=== PATIENT | female | born 1980 | race Caucasian/White ===

== ENCOUNTER 2018-08-03 18:06 | Emergency (ER) | payer OTHER ==
[~2018-08-03] VITALS: Ht 170.2 cm; Wt 108.9 kg
--- NOTE | 2018-08-03 18:15 | NUR ---
PT PINO, FROM [facility], C/O SOB X 2 DAYS, AAOX4, RESPIRATIONS EVEN AND UNLABORED, NO SOB, NAD NOTED, PT ON MONITOR, SATING AT 96, VSS, PENDING ER PROVIDER MARLENA
[2018-08-03] MEDS ORDERED: predniSONE 20 MG TABLET ONE (18:24)
--- NOTE | 2018-08-03 18:27 | NUR ---
CALLED RT FOR BREATHING TX
[2018-08-03] MEDS ORDERED: predniSONE 20 MG TABLET PO ONE (18:30)
[2018-08-03] MEDS ORDERED: IPRATROPIUM NEB FS 0.5 MG/2.5 ML AMPUL.NEB NEB ONE (18:30)
[2018-08-03] MEDS ORDERED: ALBUTEROL FS 2.5 MG/3 ML VIAL.NEB NEB ONE (18:30)
[2018-08-03] MEDS ORDERED: ALBUTEROL FS 2.5 MG/3 ML VIAL.NEB ONE (18:41)
[2018-08-03] MEDS ORDERED: IPRATROPIUM NEB FS 0.5 MG/2.5 ML AMPUL.NEB ONE (18:41)
--- NOTE | 2018-08-03 19:32 | NUR ---
CALLED FOR TRANSPORT; PT IS READY TO BE [facility]
--- NOTE | 2018-08-03 20:01 | NUR ---
SET UP BLS RIG WITH JASBIR - ETA 60 - 75 MIN - TRIP#[id number]
--- NOTE | 2018-08-03 21:33 | NUR ---
PT TRANSPORTED BACK TO [facility] VIA PRIVATE AMBULANCE IN [facility] WITH 2 SAMPLE SELECTOR, PT SIGNED D/C PAPEWORKS, VERBALIZES UNDERSTANDING, GAVE EMT'S NEW PRESCRIPTIONS TO BE HANDED TO [facility] STAFF. PT LEFT IN STABLE CONDITION
[2018-08-03 21:36] VITALS: BP 145/80
== END 2018-08-03 21:37 | disposition home or self-care (01) ==
LOC: ER 18:12
DX: J44.1 Chronic obstructive pulmonary disease with (acute) exacerbation (principal); I25.10 Atherosclerotic heart disease of native coronary artery without angina pectoris; F29 Unspecified psychosis not due to a substance or known physiological condition; I12.9 Hypertensive chronic kidney disease with stage 1 through stage 4 chronic kidney disease, or unspecified chronic kidney disease; N18.9 Chronic kidney disease, unspecified; F17.210 Nicotine dependence, cigarettes, uncomplicated; Z88.0 Allergy status to penicillin
CPT/HCPCS: 71045-TC; 82962-TC; A4606

== ENCOUNTER 2018-09-15 21:27 | Emergency (ER) | payer OTHER ==
[~2018-09-15] VITALS: Ht 167.6 cm; Wt 96.6 kg
--- NOTE | 2018-09-15 22:02 | NUR ---
[id number] FROM [facility], PER EMS SENT HERE FOR PSYC EVAL DUE TO PATIENT WANDERING AROUND FACILITY "ACTING CONFUSED". PT AAOX4, VSS. PT SEEN & EVAL'D BY CRYSTAL MOLINA. PT CALM & COOPERATIVE @ THIS TIME. WILL CONT TO MONITOR. LABS & URINE COLLECTED & SENT TO LAB.
[2018-09-15 22:07] LABS: BASOPHILS # (AUTO) 0.1 /CMM (0.0-0.2); HEMATOCRIT 25 % (33-45); HEMOGLOBIN 8.5 g/dL (11.5-14.8); LYMPHOCYTES # (AUTO) 2.1 /CMM (0.8-4.8); LYMPHOCYTES % (AUTO) 22.1 % (20.0-44.0); MEAN CORPUSCULAR HGB CONC 34 g/dl (31.0-36.0); MEAN CORPUSCULAR VOLUME 87 fL (82-100); MONOCYTES # (AUTO) 0.6 /CMM (0.1-1.30); NEUTROPHILS # (AUTO) 5.7 /CMM (1.8-8.9); NEUTROPHILS % (AUTO) 60.9 % (43.0-81.0); PLATELET COUNT (AUTO) 220 /CMM (150-450); WHITE BLOOD COUNT (AUTO) 9.4 K/uL (4.3-11.0)
[2018-09-15 22:12] LABS: APPEARANCE,URINE Clear (CLEAR); BILIRUBIN,URINE Negative (NEGATIVE); BLOOD, URINE Small Ery/uL (NEGATIVE); COLOR,URINE Yellow (YELLOW); KETONES,URINE Negative (NEGATIVE); LEUKOCYTE ESTERASE ,URINE Negative (NEGATIVE); NITRITE, URINE Negative (NEGATIVE); PROTEIN,URINE >=300 mg/dl (NEGATIVE); UGLUCOSE Negative (NEGATIVE); UROBILINOGEN,URINE 0.2 EU/dL (0.2)
[2018-09-15 22:18] LABS: CALCIUM, SERUM 7.7 mg/dL (8.5-10.1); CARBON DIOXIDE 19 mmol/L (21-32); CHLORIDE 108 mmol/L (98-107); CREATININE 6.9 mg/dL (0.6-1.3); GLUCOSE 83 mg/dL (74-106); POTASSIUM 4.2 mmol/L (3.5-5.1); SODIUM SERUM 139 mmol/L (136-145); UREA NITROGEN, BLOOD 60 mg/dL (7-18)
[2018-09-15 22:21] LABS: BACTERIA,URINE Few /HPF (None Seen); SQUAMOUS EPITHELIAL CELL,UR Few /HPF (None Seen); WBC,URINE 0-2 /HPF (0-3)
[2018-09-15 22:28] LABS: ALANINE AMINOTRANSFERASE 16 U/L (12-78); ALBUMIN 3.4 g/dL (3.4-5.0); ALKALINE PHOSPHATASE 147 U/L (46-116); ASPARTATE AMINOTRANSFERASE 19 U/L (15-37); BILIRUBIN,DIRECT 0.1 mg/dL (0.0-0.2); BILIRUBIN,TOTAL 0.3 mg/dL (0.2-1.0); SALICYLATE 6.4 mg/dL (2.8-20.0); TOTAL PROTEIN, SERUM 6.6 g/dL (6.4-8.2)
[2018-09-15 22:29] LABS: ACETAMINOPHEN < 2 ug/ml (10-30); ALCOHOL, BLOOD < 3 mg/dL (0-0)
--- NOTE | 2018-09-15 22:56 | NUR ---
CALLED DOUBLER OPERATOR HEEL SCOURER GILLIAN FOR PSYCH EVAL FOR THIS PATIENT. STATES WILL BE HERE WITHIN THE HOUR.
--- NOTE | 2018-09-15 23:05 | NUR ---
PT TO CT VIA [facility].
--- NOTE | 2018-09-15 23:18 | NUR ---
REPORT GIVEN TO LIAM FLANNERY FOR CONT OF CARE.
--- NOTE | 2018-09-16 01:03 | NUR ---
Jose clement. ROMI [phone]. Trip#[id number]
[2018-09-16 02:25] VITALS: BP 126/77
== END 2018-09-16 02:27 ==
LOC: ER 21:28
DX: F20.9 Schizophrenia, unspecified (principal); I12.9 Hypertensive chronic kidney disease with stage 1 through stage 4 chronic kidney disease, or unspecified chronic kidney disease; N18.9 Chronic kidney disease, unspecified; D64.9 Anemia, unspecified; I25.10 Atherosclerotic heart disease of native coronary artery without angina pectoris; J44.9 Chronic obstructive pulmonary disease, unspecified; F17.200 Nicotine dependence, unspecified, uncomplicated; I51.7 Cardiomegaly; Z98.890 Other specified postprocedural states; Z88.0 Allergy status to penicillin
CPT/HCPCS: 36415; 70450-TC; 71045-TC; 80048-TC; 80076-TC; 80305; 81000-TC; 83880; 84703-TC; 85025-TC; G0480

== ENCOUNTER 2019-09-01 19:17 | Emergency (ER) | payer OTHER ==
[~2019-09-01] VITALS: Ht 165.1 cm; Wt 47.6 kg
--- NOTE | 2019-09-01 20:10 | NUR ---
[id number] AND [employer] FROM [facility] FOR PSYCHOSIS. PT DENIES SI, HI, HEARING VOICES, DENIES PAIN. PLACED IN GOWN AND BELONNGS IN LOCKER. Placed on monitor and pulse ox. vss.
[2019-09-01 20:31] LABS: APPEARANCE,URINE Clear (CLEAR); BILIRUBIN,URINE Negative (NEGATIVE); BLOOD, URINE Negative Ery/uL (NEGATIVE); COLOR,URINE Yellow (YELLOW); KETONES,URINE Negative (NEGATIVE); LEUKOCYTE ESTERASE ,URINE Negative (NEGATIVE); NITRITE, URINE Negative (NEGATIVE); PH,URINE 8.5 (5.0-8.0); PROTEIN,URINE 100 mg/dl (NEGATIVE); UGLUCOSE Negative (NEGATIVE); UROBILINOGEN,URINE 0.2 EU/dL (0.2)
[2019-09-01 20:38] LABS: BASOPHILS # (AUTO) 0.1 /CMM (0.0-0.2); EOSINOPHILS % (AUTO) 4.6 % (0.0-6.0); HEMATOCRIT 34 % (33-45); HEMOGLOBIN 11.3 g/dL (11.5-14.8); LYMPHOCYTES # (AUTO) 2.3 /CMM (0.8-4.8); LYMPHOCYTES % (AUTO) 27.5 % (20.0-44.0); MEAN CORPUSCULAR HGB CONC 34 g/dl (31.0-36.0); MEAN CORPUSCULAR VOLUME 93 fL (82-100); MONOCYTES % (AUTO) 11.4 % (2.0-12.0); NEUTROPHILS # (AUTO) 4.7 /CMM (1.8-8.9); NEUTROPHILS % (AUTO) 55.5 % (43.0-81.0); PLATELET COUNT (AUTO) 215 /CMM (150-450); RED BLOOD CELL COUNT(AUTO) 3.61 MIL/uL (4.0-5.2); WHITE BLOOD COUNT (AUTO) 8.4 K/uL (4.3-11.0)
[2019-09-01 20:47] LABS: CALCIUM, SERUM 8.9 mg/dL (8.5-10.1); CARBON DIOXIDE 35 mmol/L (21-32); CHLORIDE 96 mmol/L (98-107); CREATININE 4.5 mg/dL (0.6-1.3); GLUCOSE 75 mg/dL (74-106); POTASSIUM 3.1 mmol/L (3.5-5.1); SODIUM SERUM 136 mmol/L (136-145); UREA NITROGEN, BLOOD 13 mg/dL (7-18)
[2019-09-01 20:51] LABS: ALANINE AMINOTRANSFERASE 15 U/L (12-78); ALBUMIN 3.8 g/dL (3.4-5.0); ALCOHOL, BLOOD < 3 mg/dL (0-0); ALKALINE PHOSPHATASE 65 U/L (46-116); ASPARTATE AMINOTRANSFERASE 17 U/L (15-37); BILIRUBIN,DIRECT 0.1 mg/dL (0.0-0.2); BILIRUBIN,TOTAL 0.4 mg/dL (0.2-1.0); SALICYLATE 0.6 mg/dL (2.8-20.0); TOTAL PROTEIN, SERUM 7.4 g/dL (6.4-8.2)
[2019-09-01 20:52] LABS: ACETAMINOPHEN < 2 ug/ml (10-30)
--- NOTE | 2019-09-01 23:24 | NUR ---
PT JANICE SI AND HI. VSS.
--- NOTE | 2019-09-01 23:53 | NUR ---
SPOKED TO DELANEY [facility] TO SEND THE PT BACK.
--- NOTE | 2019-09-02 00:01 | NUR ---
AMBULANCE TRANSPORT SET UP AT 0145 TRIP #[id number]
--- NOTE | 2019-09-02 01:54 | NUR ---
Patient discharged to home in stable condition. Written and verbal after care instructions given. Patient verbalizes understanding of instruction. Pt picked up by Steve. BRYN.
[2019-09-02 01:55] VITALS: BP 132/82
== END 2019-09-02 02:20 | disposition home or self-care (01) ==
LOC: ER 19:17
DX: I12.0 Hypertensive chronic kidney disease with stage 5 chronic kidney disease or end stage renal disease (principal); N18.6 End stage renal disease; G40.909 Epilepsy, unspecified, not intractable, without status epilepticus; I25.10 Atherosclerotic heart disease of native coronary artery without angina pectoris; J44.9 Chronic obstructive pulmonary disease, unspecified; F29 Unspecified psychosis not due to a substance or known physiological condition; F10.10 Alcohol abuse, uncomplicated; F17.200 Nicotine dependence, unspecified, uncomplicated; Y90.0 Blood alcohol level of less than 20 mg/100 ml; Z99.2 Dependence on renal dialysis; Z98.890 Other specified postprocedural states; Z88.0 Allergy status to penicillin
CPT/HCPCS: 36415; 80048; 80076; 80305; 80329; 80307; 81001; 84703; 85025; 99283; G0480; 81000-TC

== ENCOUNTER 2019-09-22 19:21 | Inpatient (IN) | payer OTHER ==
[~2019-09-22] VITALS: Ht 162.6 cm; Wt 84.4 kg
--- NOTE | 2019-09-22 19:25 | NUR ---
TANIA FROM [facility] FOR C/O AMS S/P FINISHING DIALYSIS SESSION. PT CURRENTLY AWAKE, ALERT AND RESPONSIVE, OX1. PLACED ON A MONITOR .VSS. NOTED W/ L ARM SHUNT (UNWRAPPED) AND L GROIN CATH. ALSO W/ R WRIST SPLINT WHICH PER PT DOES NOT REMEMBER WHAT HAS HAPPENED, WILL CONT TO MONITOR ,
[2019-09-22 19:46] LABS: BASOPHILS # (AUTO) 0.1 /CMM (0.0-0.2); BASOPHILS % (AUTO) 1.2 % (0.0-2.0); EOSINOPHILS % (AUTO) 1.7 % (0.0-6.0); HEMATOCRIT 36 % (33-45); HEMOGLOBIN 11.9 g/dL (11.5-14.8); LYMPHOCYTES # (AUTO) 2.1 /CMM (0.8-4.8); LYMPHOCYTES % (AUTO) 25.9 % (20.0-44.0); MEAN CORPUSCULAR HGB CONC 33 g/dl (31.0-36.0); MEAN CORPUSCULAR VOLUME 91 fL (82-100); MONOCYTES # (AUTO) 0.6 /CMM (0.1-1.30); MONOCYTES % (AUTO) 7.3 % (2.0-12.0); NEUTROPHILS # (AUTO) 5.1 /CMM (1.8-8.9); NEUTROPHILS % (AUTO) 63.9 % (43.0-81.0); PLATELET COUNT (AUTO) 296 /CMM (150-450); WHITE BLOOD COUNT (AUTO) 8.1 K/uL (4.3-11.0)
[2019-09-22 20:04] LABS: CALCIUM, SERUM 9.1 mg/dL (8.5-10.1); CARBON DIOXIDE 31 mmol/L (21-32); CHLORIDE 97 mmol/L (98-107); CREATININE 4.3 mg/dL (0.6-1.3); GLUCOSE 97 mg/dL (74-106); POTASSIUM 3.7 mmol/L (3.5-5.1); SODIUM SERUM 139 mmol/L (136-145); UREA NITROGEN, BLOOD 16 mg/dL (7-18)
[2019-09-22 20:21] LABS: ALANINE AMINOTRANSFERASE 17 U/L (12-78); ALKALINE PHOSPHATASE 80 U/L (46-116); ASPARTATE AMINOTRANSFERASE 30 U/L (15-37); BILIRUBIN,DIRECT 0.1 mg/dL (0.0-0.2); BILIRUBIN,TOTAL 0.5 mg/dL (0.2-1.0); TOTAL PROTEIN, SERUM 7.9 g/dL (6.4-8.2)
[2019-09-22] MEDS ORDERED: LORAZEPAM INJ 2 MG/ML VIAL IV ONE (20:30)
[2019-09-22] MEDS ORDERED: LORAZEPAM INJ 2 MG/ML VIAL ONE (20:42)
--- NOTE | 2019-09-22 21:49 | NUR ---
URINE COLLECTED AND SENT TO THE LAB
[2019-09-22 21:54] LABS: APPEARANCE,URINE Clear (CLEAR); BILIRUBIN,URINE Negative (NEGATIVE); BLOOD, URINE Small Ery/uL (NEGATIVE); COLOR,URINE Yellow (YELLOW); KETONES,URINE Negative (NEGATIVE); LEUKOCYTE ESTERASE ,URINE Negative (NEGATIVE); NITRITE, URINE Negative (NEGATIVE); PROTEIN,URINE 100 mg/dl (NEGATIVE); UGLUCOSE Negative (NEGATIVE); UROBILINOGEN,URINE 0.2 EU/dL (0.2)
[2019-09-22 22:07] LABS: PH,URINE >8.5 (5.0-8.0)
[2019-09-22 22:16] LABS: BACTERIA,URINE Few /HPF (None Seen); SQUAMOUS EPITHELIAL CELL,UR Few /HPF (None Seen); WBC,URINE NONE SEEN /HPF (0-3)
[2019-09-22] MEDS ORDERED: BUPR150T5 PO (22:50)
[2019-09-22] MEDS ORDERED: TRAZ-182 PO (22:50)
[2019-09-22] MEDS ORDERED: LORA-259 PO (22:50)
[2019-09-22] MEDS ORDERED: METO-357 PO (22:50)
[2019-09-22] MEDS ORDERED: ISOS30TA6 PO (22:50)
[2019-09-22] MEDS ORDERED: ASPI-605 PO (22:50)
[2019-09-22] MEDS ORDERED: VARE1TAB PO (22:50)
[2019-09-22] MEDS ORDERED: SERT25TA PO (22:50)
[2019-09-22] MEDS ORDERED: AMLO10TA7 PO (22:50)
[2019-09-22] MEDS ORDERED: ATOR20TA PO (22:50)
[2019-09-22] MEDS ORDERED: BENZ0.5T43 PO (22:50)
--- NOTE | 2019-09-22 23:21 | NUR ---
REPORT GIVEN TO LOU LARIOS THIRD FLOOR
[2019-09-23] MEDS ORDERED: ONDANSETRON HCL/PF 4 MG/2 ML VIAL IVP PRN
[2019-09-23] MEDS ORDERED: HYDROCODONE/APAP 5/325MG 1 EACH TABLET PO PRN
[2019-09-23] MEDS ORDERED: MAG HYDROX/AL HYDROX/SIMETH 30 ML UDC PO PRN
[2019-09-23] MEDS ORDERED: MORPHINE SULFATE INJ 2 MG/ML DISP.SYRIN IV PRN
[2019-09-23] MEDS ORDERED: LORAZEPAM 1 MG TABLET PO PRN
[2019-09-23] MEDS ORDERED: ALBUTEROL FS 2.5 MG/3 ML VIAL.NEB NEB PRN
[2019-09-23] MEDS ORDERED: ACETAMINOPHEN 325 MG TABLET PO PRN
--- NOTE | 2019-09-23 | NUR ---
Patient is resting comfortably in bed with eyes closed. Easily aroused. VSS. REMSINED UNDER CLOSE SUPERVISION FOR SAFETY. WILL CONT TO MONITOR ,
--- NOTE | 2019-09-23 03:38 | NUR ---
Patient is resting comfortably in bed with eyes closed. Easily aroused. VSS
--- NOTE | 2019-09-23 07:25 | NUR ---
report given to Lesly
--- NOTE | 2019-09-23 07:44 | NUR ---
PT WAS TRANSFERRED TO [facility] UNDER ACLS.
[2019-09-23 08:00] VITALS: BP 130/72
--- NOTE | 2019-09-23 08:10 | NUR ---
MS/RN - Admission Received patient from ER via [facility], ambulatory, alert and oriented x 2, confused at times, reality orientation provided, denies pain, no c/o shortness of breath, afebrile, non compliant with medications and treatment. Admitted for AMS/ESRD under the care of hospitalist Marvin Galvan NP. Patient oriented to room, all belongings accounted for. Saline lock on the RAC is patent and intact. Patient refused skin assessment, no visible skin breakdown noted. Fall, aspiration and seizure precautions initiated. Sitter at bedside for safety. Admission orders noted and carried out. Pending crisis team evaluation. Will continue to monitor closely.
[2019-09-23] MEDS: buPROPion SR 150 MG TABLET.ER PO SCH (09:03)
[2019-09-23] MEDS: ASPIRIN EC 81 MG TABLET.DR PO SCH (09:03)
[2019-09-23] MEDS: AMLODIPINE BESYLATE 10 MG TABLET PO SCH (09:04)
[2019-09-23] MEDS: ISOSORBIDE MONONITRATE 20 MG TABLET PO SCH ×2 (09:04→16:54)
[2019-09-23] MEDS: SERTRALINE HCL 25 MG TABLET PO SCH (09:04)
[2019-09-23] MEDS: METOPROLOL SUCCINATE 50 MG TAB.SR.24H PO SCH (09:04)
[2019-09-23] MEDS: BENZTROPINE MESYLATE (1 MG) 1 MG TABLET PO SCH ×2 (09:04→16:54)
--- NOTE | 2019-09-23 11:30 | NUR ---
MS/RN - Notes Spoke with mother Allie Collado ([phone]) and updated on plan of care. Per mother, patient currently resides at [facility]. Will notify shelter case manager and social professionals.
[2019-09-23] MEDS: NICOTINE PATCH (21MG) 21 MG PATCH.TD24 TD SCH (12:04)
--- NOTE | 2019-09-23 12:07 | NUR ---
Social service consult requested by PRADIP Grover for possible homelessness. RN reports, pt is not homeless per mother. Pt resides at [facility].
[2019-09-23 12:47] LABS: BASOPHILS # (AUTO) 0.1 /CMM (0.0-0.2); BASOPHILS % (AUTO) 0.9 % (0.0-2.0); HEMATOCRIT 37 % (33-45); HEMOGLOBIN 12.1 g/dL (11.5-14.8); LYMPHOCYTES # (AUTO) 1.8 /CMM (0.8-4.8); LYMPHOCYTES % (AUTO) 26.5 % (20.0-44.0); MEAN CORPUSCULAR HGB CONC 33 g/dl (31.0-36.0); MEAN CORPUSCULAR VOLUME 92 fL (82-100); MONOCYTES # (AUTO) 0.4 /CMM (0.1-1.30); MONOCYTES % (AUTO) 6.1 % (2.0-12.0); NEUTROPHILS # (AUTO) 4.2 /CMM (1.8-8.9); NEUTROPHILS % (AUTO) 63.5 % (43.0-81.0); PLATELET COUNT (AUTO) 302 /CMM (150-450); RED BLOOD CELL COUNT(AUTO) 4.05 MIL/uL (4.0-5.2); WHITE BLOOD COUNT (AUTO) 6.6 K/uL (4.3-11.0)
[2019-09-23 13:19] LABS: ALBUMIN 3.7 g/dL (3.4-5.0); BILIRUBIN,TOTAL 0.4 mg/dL (0.2-1.0); CALCIUM, SERUM 9.3 mg/dL (8.5-10.1); MAGNESIUM 2.3 mg/dL (1.8-2.4); POTASSIUM 4.3 mmol/L (3.5-5.1); TOTAL PROTEIN, SERUM 7.7 g/dL (6.4-8.2)
[2019-09-23 13:24] LABS: THYROID STIMULATING HORMONE 1.589 uIU/mL (0.358-3.74)
--- NOTE | 2019-09-23 18:40 | NUR ---
MS/RN - End of shift summary No significant change in condition seen. Patient denies SI/HI this time, denies pain, stable on room air, afebrile. Awaiting psych consult with Dr. Hardy. Patient refused HD treatment today per HD RN. Sitter at bedside for safety. Will continue with current medical management.
--- NOTE | 2019-09-23 19:15 | NUR ---
RN PM OPENING NOTE BEDSIDE REPORT RECIEVED FROM TIFFANY WHEELER. PATIENT IN ROOM IN NO APPARENT DISTRESS. PATIENT IS ACTING APPROPRIATE FOUND STANDING IN ROOM STATES" I WANT TO GO AND SMOKE." PER REPORT PATIENT SIGNED SMOKING ADVISEMENT. INFORMED TO AWAIT FOR NEW SITTER DAY SHIFT WS GOING HOME SOON. REVIEWED POC WITH PATIENT QUESTIONS CONCERNS ADDRESSED. PT IS COOPERATIVE AND ACTING APPROPRIATE. DENIES SI/HI IS ALERT ORIENTED X3. WILL CONT TO MONITOR.
--- NOTE | 2019-09-23 19:45 | NUR ---
PATIENT LEFT UNIT WITH SITTER MYNOR TO GO AND SMOKE.
--- NOTE | 2019-09-23 20:10 | NUR ---
pt returned to unit with karen avalos
[2019-09-23 21:00] VITALS: BP 142/84
[2019-09-23] MEDS ORDERED: TRAZODONE 50 MG TABLET PO SCH (22:00)
[2019-09-23] MEDS ORDERED: ATORVASTATIN 10 MG TABLET PO SCH (22:00)
--- NOTE | 2019-09-24 07:30 | NUR ---
RN MS NOTES PT IN BED, AWAKE, ALERT AND ORIENTED, NO COMPLAINT OF PAIN, RESPIRATIONS NORMAL, CALL LIGHT WITHIN REACH, SITTER AT BEDSIDE, NO BEHAVIOR PROBLEM NOTED, KEEP COMFORTABLE IN BED, NEEDS ATTENDED, SAFETY PRECAUTIONS OBSERVED.
[2019-09-24 08:00] VITALS: BP 148/88
[2019-09-24] MEDS: BENZTROPINE MESYLATE (1 MG) 1 MG TABLET PO SCH ×2 (09:13→17:47)
[2019-09-24] MEDS: SERTRALINE HCL 25 MG TABLET PO SCH (09:13)
[2019-09-24] MEDS: buPROPion SR 150 MG TABLET.ER PO SCH (09:13)
[2019-09-24] MEDS: ASPIRIN EC 81 MG TABLET.DR PO SCH (09:13)
[2019-09-24] MEDS: NICOTINE PATCH (21MG) 21 MG PATCH.TD24 TD SCH (09:13)
[2019-09-24] MEDS: ISOSORBIDE MONONITRATE 20 MG TABLET PO SCH ×2 (09:14→17:46)
[2019-09-24 09:15] VITALS: BP 148/88
[2019-09-24] MEDS: AMLODIPINE BESYLATE 10 MG TABLET PO SCH (09:15)
[2019-09-24] MEDS: METOPROLOL SUCCINATE 50 MG TAB.SR.24H PO SCH (09:15)
--- NOTE | 2019-09-24 18:50 | NUR ---
RN MS NOTES PT IN BED, AWAKE, ALERT AND ORIENTED, DENIES PAIN, NOT IN DISTRESS, DISCHARGE ORDER GIVEN BY DR. BUCKLEY, PT INFORMED, DISCHARGE AND MEDICATION INSTRUCTIONS PROVIDED TO PT, VERBALIZED UNDERSTANDING, LIST OF MEDS FAXED TO FACILITY PHARMACY, BELONGINGS ACCOUNTED FOR, PICKED UP BY 2 AMBULACE PERSONNEL, LEFT VIA GUERNEY IN STABLE CONDITION.
== END 2019-09-24 18:54 | DRG 470 ==
LOC: ER 19:23 → TELE 22:45 → MED 09-23 07:56
PROVIDERS: ADMIT Nurse Practitioner Acute Care; ATTEND Nurse Practitioner Acute Care
PROC: 5A1D70Z Performance of Urinary Filtration, Intermittent, Less than 6 Hours Per Day (ICD-10-PCS; principal; 2019-09-23)
DX: I12.0 Hypertensive chronic kidney disease with stage 5 chronic kidney disease or end stage renal disease (principal); G93.41 Metabolic encephalopathy; E11.22 Type 2 diabetes mellitus with diabetic chronic kidney disease; N18.6 End stage renal disease; F20.0 Paranoid schizophrenia; I25.10 Atherosclerotic heart disease of native coronary artery without angina pectoris; F29 Unspecified psychosis not due to a substance or known physiological condition; G40.909 Epilepsy, unspecified, not intractable, without status epilepticus; E66.9 Obesity, unspecified; F17.210 Nicotine dependence, cigarettes, uncomplicated; J44.9 Chronic obstructive pulmonary disease, unspecified; Z79.82 Long term (current) use of aspirin; Z91.14 Patient's other noncompliance with medication regimen; Z99.2 Dependence on renal dialysis; Z68.31 Body mass index [BMI] 31.0-31.9, adult; D64.9 Anemia, unspecified; N25.0 Renal osteodystrophy
CPT/HCPCS: 36415; 70450-TC; 71045-TC; 80048-TC; 80053-TC; 80061-TC; 80076-TC; 80305; 81000-TC; 82140-TC; 83605-TC; 83735-TC; 84100-TC; 84443-TC; 84484-TC; 84702-TC; 84703-TC; 85025-TC; 85730-TC; 87040-TC; 87081-TC; 90935-TC; G0378; J2060

== ENCOUNTER 2020-01-19 21:43 | Emergency (ER) | payer OTHER ==
[~2020-01-19] VITALS: Ht 162.6 cm; Wt 83.0 kg
[~2020-01-19 21:43] MED LIST: AMLO10TA7 PO; ASPI-605 PO; ATOR20TA PO; BENZ0.5T43 PO; BUPR150T5 PO; ISOS30TA6 PO; LORA-259 PO; METO-357 PO; SERT25TA PO; TRAZ-182 PO; VARE1TAB PO
--- NOTE | 2020-01-19 22:18 | NUR ---
BLOOD COLLECTED AND SENT TO LAB. IV LINE ESTABLISHED RAC 20 G
[2020-01-19 22:21] LABS: BASOPHILS # (AUTO) 0.1 /CMM (0.0-0.2); BASOPHILS % (AUTO) 0.7 % (0.0-2.0); EOSINOPHILS % (AUTO) 4.1 % (0.0-6.0); HEMATOCRIT 32 % (33-45); HEMOGLOBIN 10.8 g/dL (11.5-14.8); LYMPHOCYTES # (AUTO) 2.5 /CMM (0.8-4.8); LYMPHOCYTES % (AUTO) 22.8 % (20.0-44.0); MEAN CORPUSCULAR HGB CONC 34 g/dl (31.0-36.0); MEAN CORPUSCULAR VOLUME 94 fL (82-100); MONOCYTES # (AUTO) 0.9 /CMM (0.1-1.30); MONOCYTES % (AUTO) 8.4 % (2.0-12.0); PLATELET COUNT (AUTO) 248 /CMM (150-450); RED BLOOD CELL COUNT(AUTO) 3.41 MIL/uL (4.0-5.2)
[2020-01-19 22:30] LABS: CALCIUM, SERUM 8.7 mg/dL (8.5-10.1); CARBON DIOXIDE 32 mmol/L (21-32); CHLORIDE 95 mmol/L (98-107); CREATININE 6.8 mg/dL (0.6-1.3); GLUCOSE 146 mg/dL (74-106); POTASSIUM 3.3 mmol/L (3.5-5.1); SODIUM SERUM 132 mmol/L (136-145); UREA NITROGEN, BLOOD 40 mg/dL (7-18)
--- NOTE | 2020-01-19 22:30 | NUR ---
PT PINO ([facility]) from [facility] for "dislodged CVC" s/p HD today. PT AAOX4, VSS, NO ACUTE DISTRESS NOTED. PT HAS NO MEDICAL COMPLAINTS AT THIS TIME. PT CONNECTED TO THE LONGWALL HEADGATE OPERATOR AND POX
[2020-01-19 22:36] LABS: ALANINE AMINOTRANSFERASE 17 U/L (12-78); ALBUMIN 3.8 g/dL (3.4-5.0); ALKALINE PHOSPHATASE 89 U/L (46-116); ASPARTATE AMINOTRANSFERASE 13 U/L (15-37); BILIRUBIN,TOTAL 0.2 mg/dL (0.2-1.0); TOTAL PROTEIN, SERUM 7.6 g/dL (6.4-8.2)
--- NOTE | 2020-01-19 23:47 | NUR ---
CALLED [facility] SPOKE TO DELANEY AND MADE AWARE OF PT DISCHAGE BACK TO FACILITY AND TO CALL PMD TOMORROW TO SET-UP APPOINTMENT FOR VASCULAR CATH PLACEMENT WITH PT PMD/NEPHRO.
--- NOTE | 2020-01-20 00:06 | NUR ---
CALLED KARI ARNDT. [phone]
--- NOTE | 2020-01-20 00:11 | NUR ---
TRANSPORT ETA 1 HOUR [facility].
--- NOTE | 2020-01-20 01:57 | NUR ---
UPDATED ETA 30-45 MIN
--- NOTE | 2020-01-20 02:53 | NUR ---
UPDATED ETA 30 MIN!
--- NOTE | 2020-01-20 03:34 | NUR ---
PT RESTING COMFORTABLY IN BED. VSS. NO ACUTE DISTRESS NOTED. WILL CONTINUE TO MONITOR
[2020-01-20 03:51] VITALS: BP 115/63
[2020-01-20] MEDS ORDERED: ALBU8.5H8 IH (13:32)
[2020-01-20] MEDS ORDERED: FLUP5ORA PO (13:32)
[2020-01-20] MEDS ORDERED: TRAZ-257 PO (13:32)
[2020-01-20] MEDS ORDERED: SUCR500T PO (13:32)
== END 2020-01-20 03:52 | disposition home or self-care (01) ==
LOC: ER 21:43
DX: T82.49XA Other complication of vascular dialysis catheter, initial encounter (principal); R56.9 Unspecified convulsions; I25.10 Atherosclerotic heart disease of native coronary artery without angina pectoris; I10 Essential (primary) hypertension; J44.9 Chronic obstructive pulmonary disease, unspecified; Z88.0 Allergy status to penicillin; Z79.82 Long term (current) use of aspirin; Z79.899 Other long term (current) drug therapy
CPT/HCPCS: 36415; 71045-TC; 80048-TC; 80076-TC; 84484-TC; 85025-TC; 85730-TC

== ENCOUNTER 2020-01-20 10:51 | Inpatient (IN) | payer OTHER ==
[~2020-01-20] VITALS: Ht 162.6 cm; Wt 86.2 kg
--- NOTE | 2020-01-20 11:12 | NUR ---
DR HARI GONZALES. AWAITING CALL BACK.
--- NOTE | 2020-01-20 11:52 | NUR ---
CALLED OFFICE OF CHRISTIAN TIM MD
--- NOTE | 2020-01-20 12:55 | NUR ---
GAVE MOVESHEET TO ADMITTING FOR INSURANCE AUTH
[2020-01-20] MEDS ORDERED: TRAZ-257 PO (13:32)
[2020-01-20] MEDS ORDERED: FLUP5ORA PO (13:32)
[2020-01-20] MEDS ORDERED: SUCR500T PO (13:32)
[2020-01-20] MEDS ORDERED: ALBU8.5H8 IH (13:32)
--- NOTE | 2020-01-20 14:30 | NUR ---
CALLED DR NORIEGA FOR ADMISSION, SENIOR RESEARCH ASSOCIATE STATES WILL INFORM
[2020-01-20 14:34] LABS: BASOPHILS # (AUTO) 0.1 /CMM (0.0-0.2); BASOPHILS % (AUTO) 1.3 % (0.0-2.0); EOSINOPHILS % (AUTO) 4.7 % (0.0-6.0); HEMATOCRIT 33 % (33-45); LYMPHOCYTES # (AUTO) 1.7 /CMM (0.8-4.8); MEAN CORPUSCULAR HGB CONC 34 g/dl (31.0-36.0); MEAN CORPUSCULAR VOLUME 94 fL (82-100); MONOCYTES # (AUTO) 0.6 /CMM (0.1-1.30); NEUTROPHILS # (AUTO) 5.9 /CMM (1.8-8.9); PLATELET COUNT (AUTO) 233 /CMM (150-450); RED BLOOD CELL COUNT(AUTO) 3.49 MIL/uL (4.0-5.2); WHITE BLOOD COUNT (AUTO) 8.7 K/uL (4.3-11.0)
[2020-01-20 14:51] LABS: ALBUMIN 3.7 g/dL (3.4-5.0); BILIRUBIN,DIRECT 0.1 mg/dL (0.0-0.2); BILIRUBIN,TOTAL 0.3 mg/dL (0.2-1.0); CALCIUM, SERUM 9.4 mg/dL (8.5-10.1); POTASSIUM 3.8 mmol/L (3.5-5.1); TOTAL PROTEIN, SERUM 7.5 g/dL (6.4-8.2)
--- NOTE | 2020-01-20 14:51 | NUR ---
report given to Mireya WHEELER for allison.
[2020-01-20 14:55] LABS: CREATININE 7.7 mg/dL (0.6-1.3)
--- NOTE | 2020-01-20 15:29 | NUR ---
wheeled patient via wheelchair in no distress. RN at bedside to assume care.
--- NOTE | 2020-01-20 15:30 | NUR ---
Received patient via wheelchair. Alert and orientated x3, ambulatory. Skin inspected ,; no issues found. CHRISTEL fistula intact, L femoral HD cath, dislodge. IV line to the RAC 18 g , flushing well. PAtient requested Nicotine patch ( 10-14 cigarettes a day). Patient oriented to unit , call light placed next to patient. Valuable form completed. Adm. doctor informed. Awaiting for orders.
[2020-01-20 16:00] VITALS: BP 141/89
[2020-01-20] MEDS: NICOTINE PATCH (21MG) 21 MG PATCH.TD24 TD SCH (16:38)
--- NOTE | 2020-01-20 17:52 | NUR ---
Received telephone call from . Per dr. Angulo to continue all home Meds as reported; physician consult for dr. Jacobs; Nicotine Patch ; renal diet.
[2020-01-20] MEDS ORDERED: Medication Not On Formulary EA (Sucroferric Oxyhydroxide (Velphoro) 500 MG) PO SCH (18:00)
[2020-01-20] MEDS ORDERED: LORAZEPAM 1 MG TABLET PO PRN (18:00)
[2020-01-20] MEDS: FLUPHENAZINE HCL 10 MG TABLET PO SCH (18:30)
--- NOTE | 2020-01-20 19:08 | NUR ---
Patient resting in room, A/O x3, noted with aggressive behavior due to need to smoke. Nicotine patch applied as ordered, patient stated it did not work. Breathing unlabored and even on room air, VS are stable , afebrile. All needs attended, diner provided. Patient educated to use call light. Safety precautions in place . Will endorse to next shift for TATIANA
[2020-01-20] MEDS ORDERED: ALBUTEROL FS 2.5 MG/0.5 ML VIAL.NEB NEB PRN (19:30)
--- NOTE | 2020-01-20 19:33 | NUR ---
MS RN OPENING NOTES PATIENT RECEIVED RESTING IN BED A/O X 4. STABLE ON RA WITH BREATHING EVEN AND UNLABORED, NO SOB NOTED. NO SIGNS OF ACUTE DISTRESS. NO COMPLAINTS OF PAIN OR DISCOMFORT AT THE MOMENT. IV LOCATED ON R AC #18 H/L. SAFETY PRECAUTIONS IN PLACE WITH BED IN LOWEST POSITION, CALL LIGHT WITHIN REACH, BREAKS ON, SIDE RAILS UP. WILL CONTINUE TO MONITOR THROUGHOUT THE SHIFT.
[2020-01-20 20:32] VITALS: BP 135/73
[2020-01-20] MEDS: TRAZODONE 50 MG TABLET PO SCH (21:14)
[2020-01-20] MEDS: ATORVASTATIN 10 MG TABLET PO SCH (21:14)
--- NOTE | 2020-01-21 06:33 | NUR ---
MS RN CLOSING NOTES PATIENT RESTING IN BED A/O X 3. STABLE ON RA WITH BREATHING EVEN AND UNLABORED, NO SOB NOTED. NO SIGNS OF ACUTE DISTRESS. NO COMPLAINTS OF PAIN OR DISCOMFORT AT THE MOMENT. IV LOCATED ON R AC #18 H/L. CHRISTEL FISTULA AND L FEMORAL HD CATH NOTED AND IN PLACE. SAFETY PRECAUTIONS IN PLACE WITH BED IN LOWEST POSITION, CALL LIGHT WITHIN REACH, BREAKS ON, SIDE RAILS UP. ALL NEEDS ATTENDED TO. WILL ENDORSE TO ONCOMING SHIFT ABOUT TATIANA.
[2020-01-21 08:00] VITALS: BP 128/75
[2020-01-21] MEDS: METOPROLOL SUCCINATE 50 MG TAB.SR.24H PO SCH (08:12)
[2020-01-21] MEDS: FLUPHENAZINE HCL 10 MG TABLET PO SCH ×2 (08:13→17:14)
[2020-01-21] MEDS: AMLODIPINE BESYLATE 10 MG TABLET PO SCH (08:13)
[2020-01-21] MEDS: ISOSORBIDE MONONITRATE 20 MG TABLET PO SCH ×2 (09:00→17:00)
--- NOTE | 2020-01-21 14:50 | NUR ---
Patient see by dr. Jacobs. Patient updated with plan of care, will have dialysis tomorrow am
[2020-01-21] MEDS: NICOTINE PATCH (21MG) 21 MG PATCH.TD24 TD SCH (16:00)
[2020-01-21] MEDS: SEVELAMER CARBONATE 800 MG TABLET PO SCH (17:14)
--- NOTE | 2020-01-21 17:55 | NUR ---
Received call from . Per dr. Angulo patient will be d/c tomorrow after dialysis and femoral HD cath removal.
--- NOTE | 2020-01-21 19:33 | NUR ---
Patient resting in bed .Breathing unlabored and even on room air, VS are stable , afebrile. All needs attended ,.Call light within reach. Safety precautions in place . Will endorse to next shift for TATIANA
--- NOTE | 2020-01-21 19:45 | NUR ---
RN OPENING NOTES RECEIVED REPORT FROM SHU RNGWENDOLYN. FOUND Pt AWAKE, RESTING IN BED, WATCHING TV. NO S/S OF ACUTE DISTRESS OR SOB NOTED. Pt IS A/OX4, VERBAL, ABLE TO MAKE NEEDS KNOWN. IV ACCESS ON RAC #18G, SL. CHRISTEL HD FISTUAL, & L FEMORAL HD CATH WHICH IS DISLODGED & MALFUNCTIONING. SAFETY MEASURES IN PLACE. BED LOW, LOCKED, HOB ELEVATED, SIDE RAILS UP, CALL LIGHT AND BEDSIDE TABLE WITHIN REACH. WILL CONTINUE TO MONITOR Pt's CONDITION AND SAFETY THROUGHOUT THE NIGHT.
[2020-01-21 20:15] VITALS: BP 144/85
[2020-01-21 20:30] VITALS: BP 144/85
--- NOTE | 2020-01-21 20:30 | NUR ---
RN NOTES Pt SIGNED SMOKING WAIVER FORM. WENT DOWN FOR A SMOKE WITH LPC ESCORT. ARRESTING GEAR OPERATOR KEPT IN DRAWER AT NURSING STATION.
[2020-01-21] MEDS: ATORVASTATIN 10 MG TABLET PO SCH (21:06)
[2020-01-21] MEDS: TRAZODONE 50 MG TABLET PO SCH (21:06)
--- NOTE | 2020-01-22 05:30 | NUR ---
RN NOTES Pt REFUSED AM LAB DRAW. WILL ATTEMPT AGAIN LATER.
--- NOTE | 2020-01-22 06:33 | NUR ---
RN CLOSING NOTES NO SIGNIFICANT CHANGES IN Pt's CONDITION DURING THE NIGHT. ALL NEEDS MET AND ATTENDED TO. Pt REMAINED STABLE PER BASELINE. NO S/S OF ACUTE DISTRESS OR SOB NOTED DURING THE SHIFT. SAFETY MEASURES IN PLACE. Pt RESTING IN BED. WILL ENDORSE TO DAYSHIFT RN FOR Pt's TATIANA.
[2020-01-22 08:00] VITALS: BP 140/90
[2020-01-22] MEDS: SEVELAMER CARBONATE 800 MG TABLET PO SCH ×4 (08:43→17:09)
[2020-01-22] MEDS: AMLODIPINE BESYLATE 10 MG TABLET PO SCH (08:43)
[2020-01-22] MEDS: METOPROLOL SUCCINATE 50 MG TAB.SR.24H PO SCH (08:44)
[2020-01-22] MEDS: FLUPHENAZINE HCL 10 MG TABLET PO SCH ×2 (08:47→17:00)
[2020-01-22] MEDS: ISOSORBIDE MONONITRATE 20 MG TABLET PO SCH ×2 (09:00→17:00)
--- NOTE | 2020-01-22 11:00 | NUR ---
RN NOTE Patient is agitated and aggressive threatening to leave AMA this AM at 0800 and patient is eager to smoke a cigarette outside. Informed the patient that she needs to complete her dialysis and old HD femoral cath needs to be removed in addition that Dr. Angulo needs to clear her for discharge. Patient went down for a walk with the NURSERY ATTENDANT. Femoral HD cath was in place prior to leaving the floor. When patient came back with the NURSERY ATTENDANT, they stated that the femoral cath fell out; site was not bleeding. Went back to search for the catheter and unable to find it. Patient continues to be agitated, provided snacks and coffee per patient's request and provided comfort for patient. Patient refuses to take any Ativan when offered. Patient then got aggressive and threatened to harm the nurses, security was called to the floor. Notified Dr. Angulo that patient wants to leave AMA. Stat x-ray of the pelvis completed and patient signed AMA papers, refused vital signs, refused belongings to be checked and refused skin assessment. Charge nurse made aware. Dr. Angulo aware. Dr. Cheikh Marcos made aware after patient left AMA. Dr. Thomas aware after patient left AMA.
--- NOTE | 2020-01-22 12:40 | NUR ---
MS RN NOTE RECEIVED PATIENT FOR CONTINUATION OF CARE.
--- NOTE | 2020-01-22 12:40 | NUR ---
MS RN NOTES PATIENT WANTS TO GO SMOKE, DR. MITCHELL SPOKE AND EDUCATED PATIENT ABOUT SMOKING AND ABOUT NICOTINE PATCH. PATIENT AGREED TO NICOTINE PATCH. PER PATIENT IF SHE DOESN'T SMOKE NOW SHE WILL LEAVE AMA. PATIENT ACCOMPANIED BY STAFF IN SMOKING AREA.
--- NOTE | 2020-01-22 13:00 | NUR ---
MS RN NOTE HD DIALYSIS AT BEDSIDE.
--- NOTE | 2020-01-22 13:00 | NUR ---
MS RN NOTE PATIENT RETURNED FROM SMOKING. ORIENTED TO ROOM ,ROOMMATE AND UNIT. AMBULATORY WITH STEADY GAIT. PATIENT NON-COMPLIANT WITH CARE. BED IN LOWEST POSITION, LOCKED. BED ALARM ON, LOCKED. CALL LIGHT WITHIN REACH.
--- NOTE | 2020-01-22 14:15 | NUR ---
MS RN NOTES PATIENT UNABLE TO GET DIALYZED DUE TO LEFT AC FISTULA NON-FUNCTIONING. HD NURSE INFORMED DR. MITCHELL
[2020-01-22 15:36] LABS: BASOPHILS # (AUTO) 0.1 /CMM (0.0-0.2); BASOPHILS % (AUTO) 0.8 % (0.0-2.0); EOSINOPHILS % (AUTO) 4.1 % (0.0-6.0); HEMATOCRIT 33 % (33-45); LYMPHOCYTES # (AUTO) 2.1 /CMM (0.8-4.8); LYMPHOCYTES % (AUTO) 18.2 % (20.0-44.0); MEAN CORPUSCULAR HGB CONC 33 g/dl (31.0-36.0); MEAN CORPUSCULAR VOLUME 95 fL (82-100); MONOCYTES # (AUTO) 0.7 /CMM (0.1-1.30); MONOCYTES % (AUTO) 6.5 % (2.0-12.0); NEUTROPHILS % (AUTO) 70.4 % (43.0-81.0); PLATELET COUNT (AUTO) 230 /CMM (150-450); RED BLOOD CELL COUNT(AUTO) 3.51 MIL/uL (4.0-5.2); WHITE BLOOD COUNT (AUTO) 11.3 K/uL (4.3-11.0)
--- NOTE | 2020-01-22 15:50 | NUR ---
MS RN NOTES ENDORSED TO LIAM GUERRERO FOR CONTINUATION OF CARE.
[2020-01-22 15:59] LABS: ALBUMIN 3.7 g/dL (3.4-5.0); BILIRUBIN,TOTAL 0.3 mg/dL (0.2-1.0); CALCIUM, SERUM 9.1 mg/dL (8.5-10.1); MAGNESIUM 2.4 mg/dL (1.8-2.4); PHOSPHORUS 6.2 mg/dL (2.5-4.9); POTASSIUM 4.2 mmol/L (3.5-5.1); TOTAL PROTEIN, SERUM 7.6 g/dL (6.4-8.2)
[2020-01-22] MEDS: NICOTINE PATCH (21MG) 21 MG PATCH.TD24 TD SCH ×2 (16:00→16:59)
[2020-01-22 16:02] LABS: CREATININE 9.2 mg/dL (0.6-1.3)
--- NOTE | 2020-01-22 18:39 | NUR ---
CLOSING NOTE PT AWAKE IN BED, ALERT AND ORIENTED X 4, ON ROOM AIR, SATURATING WELL, RESPIRATIONS EVEN AND UNLABORED, NO SIGNS OF RESPIRATORY DISTRESS NOTED. REFUSED ALL PM MEDICATIONS. BED IN LOW POSITION, LOCKED, CALL LIGHT WITHIN REACH. WILL ENDORSE TO NOC SHIFT NURSE.
--- NOTE | 2020-01-22 20:28 | NUR ---
MS/TELE/RN PATIENT IS AWAKE, ALERT, ORIENTED, COMFORTABLE, NO C/O PAIN, NO DISTRESS NOTED, JUST CAME FROM DOWNSTAIRS WITH THE ENDOSCOPY SPECIALTY TECHNICIAN FOR SMOKE, WILL MONITOR.
[2020-01-22] MEDS: TRAZODONE 50 MG TABLET PO SCH (21:24)
[2020-01-22] MEDS: ATORVASTATIN 10 MG TABLET PO SCH (21:24)
--- NOTE | 2020-01-23 01:42 | NUR ---
MS/TELE/RN PATIENT IS SLEEPING AT THIS TIME, APPEAR COMFORTABLE, NO SIGNS OF DISTRESS NOTED, CALL LIGHT IN REACH. WILL CONTINUE TO MONITOR.
--- NOTE | 2020-01-23 07:30 | NUR ---
m/s panman: initial assessment received pt in bed awake, a/ox4. for hd tx today. pt has no h/l and refusing iv insertion, saying, i won't need it, after my dialysis treatment, i'm planning to go home. reality orientation provided prn. pt refused skin assessment. instructed to call for assistance. will continue to monitor.
[2020-01-23 08:00] VITALS: BP 148/90
[2020-01-23] MEDS: ISOSORBIDE MONONITRATE 20 MG TABLET PO SCH (09:00)
[2020-01-23] MEDS: METOPROLOL SUCCINATE 50 MG TAB.SR.24H PO SCH (09:00)
[2020-01-23] MEDS: AMLODIPINE BESYLATE 10 MG TABLET PO SCH (09:00)
--- NOTE | 2020-01-23 09:00 | NUR ---
m/s health information coder: notes pt for hd tx today and aware. held all b/p meds.
[2020-01-23] MEDS: FLUPHENAZINE HCL 10 MG TABLET PO SCH (09:07)
[2020-01-23] MEDS: SEVELAMER CARBONATE 800 MG TABLET PO SCH ×2 (09:07→13:00)
--- NOTE | 2020-01-23 09:15 | NUR ---
m/s v belt inspector: notes hd tx started by fer (hd nurse).
--- NOTE | 2020-01-23 11:30 | NUR ---
m/s group care worker: notes pt wants to go home and wants me to call his doctor right away. pt still having hd tx, but refusing to continue. pt had 1 liter remove per efr (hd nurse). dr. martin notified and made aware with discharge order back to [facility]. samanta (cm) made aware and will call facility and arrange for transportation.
--- NOTE | 2020-01-23 12:00 | NUR ---
m/s foam gun operator: notes arranged transportation for 1315 per cm. pt made aware.
[2020-01-23 12:57] LABS: BASOPHILS # (AUTO) 0.1 /CMM (0.0-0.2); BASOPHILS % (AUTO) 0.9 % (0.0-2.0); EOSINOPHILS % (AUTO) 3.6 % (0.0-6.0); HEMATOCRIT 33 % (33-45); HEMOGLOBIN 10.9 g/dL (11.5-14.8); LYMPHOCYTES # (AUTO) 1.7 /CMM (0.8-4.8); LYMPHOCYTES % (AUTO) 18.7 % (20.0-44.0); MEAN CORPUSCULAR HGB CONC 33 g/dl (31.0-36.0); MEAN CORPUSCULAR VOLUME 94 fL (82-100); MONOCYTES # (AUTO) 0.7 /CMM (0.1-1.30); MONOCYTES % (AUTO) 7.5 % (2.0-12.0); NEUTROPHILS # (AUTO) 6.3 /CMM (1.8-8.9); NEUTROPHILS % (AUTO) 69.3 % (43.0-81.0); PLATELET COUNT (AUTO) 248 /CMM (150-450); RED BLOOD CELL COUNT(AUTO) 3.49 MIL/uL (4.0-5.2); WHITE BLOOD COUNT (AUTO) 9.2 K/uL (4.3-11.0)
--- NOTE | 2020-01-23 13:30 | NUR ---
m/s acute care nursing assistant: notes discharge instruction given to pt and copy provided. pt verbalized understanding and aware that she is going for hd tx on mondays, wednesdays and fridays. ambulance running late. f/u made to case management. pt getting anxious and wants to smoke. taken down to smoke accompanied by staff.
--- NOTE | 2020-01-23 13:35 | NUR ---
m/s dry cleaning machine operator: notes ambulance here and report given to one of the crew.
--- NOTE | 2020-01-23 13:45 | NUR ---
m/s deck engineer: discharge discharged back to [facility] in stable condition with all valuables accompanied by 2 emt.
== END 2020-01-23 13:45 | DRG 466 ==
LOC: ER 10:53 → MEDSG2 15:18 → MED 01-22 12:18
PROVIDERS: ADMIT Internal Medicine; ATTEND Internal Medicine
PROC: 5A1D70Z Performance of Urinary Filtration, Intermittent, Less than 6 Hours Per Day (ICD-10-PCS; principal; 2020-01-21)
PROC: 5A1D70Z Performance of Urinary Filtration, Intermittent, Less than 6 Hours Per Day (ICD-10-PCS; 2020-01-23)
DX: T82.41XA Breakdown (mechanical) of vascular dialysis catheter, initial encounter (principal); I12.0 Hypertensive chronic kidney disease with stage 5 chronic kidney disease or end stage renal disease; E11.22 Type 2 diabetes mellitus with diabetic chronic kidney disease; Y83.9 Surgical procedure, unspecified as the cause of abnormal reaction of the patient, or of later complication, without mention of misadventure at the time of the procedure; Y92.89 Other specified places as the place of occurrence of the external cause; N18.6 End stage renal disease; G40.909 Epilepsy, unspecified, not intractable, without status epilepticus; Z99.2 Dependence on renal dialysis; I25.10 Atherosclerotic heart disease of native coronary artery without angina pectoris; F17.210 Nicotine dependence, cigarettes, uncomplicated; J44.9 Chronic obstructive pulmonary disease, unspecified; F20.0 Paranoid schizophrenia; F29 Unspecified psychosis not due to a substance or known physiological condition; Q78.9 Osteochondrodysplasia, unspecified; D63.1 Anemia in chronic kidney disease
CPT/HCPCS: 36415; 72170-TC; 80048-TC; 80053-TC; 80076-TC; 83735-TC; 84100-TC; 85025-TC; 85730-TC; 86706; 87081-TC; 87340; G0378

== ENCOUNTER 2020-01-22 11:18 | Emergency (ER) | payer OTHER ==
[~2020-01-22] VITALS: Ht 170.2 cm; Wt 77.1 kg
[~2020-01-22 11:18] MED LIST changes: +ALBU8.5H8 IH; +FLUP5ORA PO; +SUCR500T PO; +TRAZ-257 PO
--- NOTE | 2020-01-22 11:28 | NUR ---
patient came in to the er c/o " I need dialysis was updtairs and left-wanted to smoke but I havent been dialized". On room air, breathing evenly and unlabored. Denies any pain at this time. Will continue to monitor accordingly.
--- NOTE | 2020-01-22 12:17 | NUR ---
report given to Rafiq WHEELER for allison
[2020-01-22 12:19] VITALS: BP 145/87
--- NOTE | 2020-01-22 12:33 | NUR ---
wheeled patient via wheelchair in no distress, RN at bedside to assume care.
== END 2020-01-22 12:32 | disposition other institution (70) ==
LOC: ER 11:18
DX: I12.0 Hypertensive chronic kidney disease with stage 5 chronic kidney disease or end stage renal disease (principal); N18.6 End stage renal disease; R56.9 Unspecified convulsions; I25.10 Atherosclerotic heart disease of native coronary artery without angina pectoris; J44.9 Chronic obstructive pulmonary disease, unspecified; Z99.2 Dependence on renal dialysis; Z98.890 Other specified postprocedural states; Z88.0 Allergy status to penicillin; Z79.82 Long term (current) use of aspirin; Z79.899 Other long term (current) drug therapy

== ENCOUNTER 2020-02-29 14:52 | Inpatient (IN) | payer OTHER ==
[~2020-02-29] VITALS: Ht 167.6 cm; Wt 83.9 kg
[~2020-02-29 14:52] MED LIST changes: -ASPI-605 PO; -BENZ0.5T43 PO; -BUPR150T5 PO; -SERT25TA PO; -TRAZ-182 PO; -VARE1TAB PO
--- NOTE | 2020-02-29 15:05 | NUR ---
PT BIB [facility] FROM [facility]. SENT BY PMD FOR COVID 19 POSITIVE. PT AAOX3, VSS. RR EVEN & UNLABORED. DENIES CP, SOB, DIZZINESS, N/V, WEAKNESS AT THIS TIME. AWAITING EVAL BY ERMD & WILL CONT TO MONITOR.
--- NOTE | 2020-02-29 18:00 | NUR ---
Patient is resting comfortably in bed with eyes closed. Easily aroused. VSS
[2020-02-29] MEDS ORDERED: NICOTINE PATCH (21MG) 21 MG PATCH.TD24 TD SCH (19:30)
--- NOTE | 2020-02-29 20:04 | NUR ---
@ 1919: CALLED [phone] AND SPOKE WITH [facility] , PROVIDED ASKED INFORMATION REGARDING THE PATIENT, PER OMAR SHE WILL HAVE THE IT BUSINESS ANALYST CALL ME. @ 1941: RECEIVED A CALL FROM SHELIA SWANSON CM PLASTER MACHINE TENDER, CLINICALS PROVIDED VERBALLY, HE IS WORKING ON A TRANSFER TO OTHER HOSPITAL.
[2020-02-29] MEDS ORDERED: NICOTINE PATCH (21MG) 21 MG PATCH.TD24 TD ONE (20:12)
--- NOTE | 2020-02-29 20:26 | NUR ---
Patient is resting comfortably in bed with eyes closed. Easily aroused. VSS
--- NOTE | 2020-03-01 01:45 | NUR ---
PT ASLEEP. VSS. NO ACUTE DISTRESS NOTED. WILL CONTINUE TO MONITOR
--- NOTE | 2020-03-01 04:17 | NUR ---
PT RESTING COMFORTABLY IN BED. VSS. NO ACUTE DISTRESS NOTED. SITTER AT BEDSIDE FOR SAFETY
--- NOTE | 2020-03-01 08:19 | NUR ---
PAGED DR. NORIEGA FOR ADMISSION
--- NOTE | 2020-03-01 09:50 | NUR ---
wheeled patient via gurney accompanied by RN and emt in no distress. RN at bedside to assume care.
[2020-03-01 10:00] VITALS: BP 108/81
--- NOTE | 2020-03-01 10:00 | NUR ---
PT FROM ED. ADMITTED FOR COVID 19 POSITIVE. PT AAOX3, VSS. RR EVEN & UNLABORED. DENIES CP, SOB, DIZZINESS, N/V, WEAKNESS AT THIS TIME. 22g IV STARTED IN RIGHT WRIST.AWAITING FOR ADMITTING ORDERS. WILL CONT TO MONITOR.
[2020-03-01] MEDS ORDERED: Z GUARD REMEDY 2 OZ OINT TP PRN (11:00)
[2020-03-01] MEDS ORDERED: HYDROCODONE/APAP 5/325MG 1 EACH TABLET PO PRN (11:00)
[2020-03-01] MEDS ORDERED: ONDANSETRON HCL/PF 4 MG/2 ML VIAL IVP PRN (11:00)
[2020-03-01] MEDS ORDERED: ACETAMINOPHEN 325 MG TABLET PO PRN (11:00)
[2020-03-01] MEDS ORDERED: MAGNESIUM HYDROXIDE 30 ML UDC PO PRN (11:00)
[2020-03-01 12:16] LABS: ALBUMIN 4.1 g/dL (3.4-5.0); BILIRUBIN,TOTAL 0.5 mg/dL (0.2-1.0); CALCIUM, SERUM 9.5 mg/dL (8.5-10.1); MAGNESIUM 2.8 mg/dL (1.8-2.4); PHOSPHORUS 5.5 mg/dL (2.5-4.9); POTASSIUM 4.4 mmol/L (3.5-5.1); TOTAL PROTEIN, SERUM 8.3 g/dL (6.4-8.2)
[2020-03-01 12:19] LABS: CREATININE 9.6 mg/dL (0.6-1.3)
[2020-03-01 12:25] LABS: BASOPHILS # (AUTO) 0.1 /CMM (0.0-0.2); EOSINOPHILS % (AUTO) 6.2 % (0.0-6.0); HEMATOCRIT 40 % (33-45); HEMOGLOBIN 13.3 g/dL (11.5-14.8); LYMPHOCYTES # (AUTO) 1.8 /CMM (0.8-4.8); LYMPHOCYTES % (AUTO) 23.7 % (20.0-44.0); MEAN CORPUSCULAR HGB CONC 33 g/dl (31.0-36.0); MEAN CORPUSCULAR VOLUME 96 fL (82-100); MONOCYTES # (AUTO) 0.5 /CMM (0.1-1.30); MONOCYTES % (AUTO) 6.5 % (2.0-12.0); NEUTROPHILS # (AUTO) 4.8 /CMM (1.8-8.9); NEUTROPHILS % (AUTO) 62.6 % (43.0-81.0); PLATELET COUNT (AUTO) 275 /CMM (150-450); RED BLOOD CELL COUNT(AUTO) 4.17 MIL/uL (4.0-5.2); WHITE BLOOD COUNT (AUTO) 7.7 K/uL (4.3-11.0)
[2020-03-01] MEDS ORDERED: SEVELAMER CARBONATE 800 MG TABLET PO ONE (13:15)
[2020-03-01] MEDS: SEVELAMER CARBONATE 800 MG TABLET PO SCH ×2 (13:35→17:10)
[2020-03-01] MEDS ORDERED: LORAZEPAM 0.5 MG TABLET ONE (14:35)
[2020-03-01] MEDS ORDERED: FLUPHENAZINE HCL 5 MG TABLET PO SCH (17:00)
[2020-03-01] MEDS: FLUPHENAZINE HCL 10 MG TABLET PO SCH (17:10)
[2020-03-01] MEDS: ISOSORBIDE DINITRATE (20MG) 20 MG TABLET PO SCH (17:10)
--- NOTE | 2020-03-01 18:09 | NUR ---
PATIENT IN BED, NOTED WITH ANXIETY AND PACING. ATIVAN PO ADMINISTERED PER ORDERS.DINNER TAKEN WITH GOOD APPETITE. VS STABLE. SAFETY MEASURES MAINTAINED AT ALL TIMES. WILL ENDORSE TO CARPET WEAVER RN.
[2020-03-01 20:00] VITALS: BP_SYST 114; BP_SYST 145; BP_DIAS 51; BP_DIAS 87
[2020-03-01] MEDS: ATORVASTATIN 10 MG TABLET PO SCH (21:59)
[2020-03-01] MEDS ORDERED: ZOLPIDEM TARTRATE 5 MG TABLET PO PRN (22:00)
[2020-03-01] MEDS: LORAZEPAM 1 MG TABLET PO PRN (22:00)
[2020-03-01] MEDS: TRAZODONE 50 MG TABLET PO SCH (22:01)
[2020-03-01] MEDS: HEPARIN SODIUM, PORCINE 5000 UNITS/1 ML VIAL SQ SCH (22:03)
[2020-03-02 04:00] VITALS: BP 158/98
--- NOTE | 2020-03-02 05:08 | NUR ---
RN notes In bed resting comfortably with no apparent distress, breathing even and unlabored. Room air well tolerated. No complaint of pain or discomfort. Alert and oriented x 3, verbally able to communicate needs. Ambulatory with bathroom privileges. All meds given, needs attended. Vital signs wnl. No significant change of condition. kept clean and dry. Will enodrse to next shift for continuity of care.
[2020-03-02 06:29] LABS: BASOPHILS # (AUTO) 0.1 /CMM (0.0-0.2); EOSINOPHILS % (AUTO) 5.2 % (0.0-6.0); HEMATOCRIT 37 % (33-45); HEMOGLOBIN 12.1 g/dL (11.5-14.8); LYMPHOCYTES % (AUTO) 28.9 % (20.0-44.0); MEAN CORPUSCULAR HGB CONC 33 g/dl (31.0-36.0); MEAN CORPUSCULAR VOLUME 96 fL (82-100); MONOCYTES # (AUTO) 0.6 /CMM (0.1-1.30); NEUTROPHILS # (AUTO) 3.8 /CMM (1.8-8.9); NEUTROPHILS % (AUTO) 55.9 % (43.0-81.0); PLATELET COUNT (AUTO) 223 /CMM (150-450); RED BLOOD CELL COUNT(AUTO) 3.84 MIL/uL (4.0-5.2); WHITE BLOOD COUNT (AUTO) 6.9 K/uL (4.3-11.0)
[2020-03-02 06:33] LABS: ALBUMIN 3.8 g/dL (3.4-5.0); BILIRUBIN,TOTAL 0.4 mg/dL (0.2-1.0); CALCIUM, SERUM 9.1 mg/dL (8.5-10.1); MAGNESIUM 2.6 mg/dL (1.8-2.4); PHOSPHORUS 5.4 mg/dL (2.5-4.9); TOTAL PROTEIN, SERUM 7.8 g/dL (6.4-8.2)
[2020-03-02 06:38] LABS: CREATININE 7.7 mg/dL (0.6-1.3)
--- NOTE | 2020-03-02 07:30 | NUR ---
RN OPENING NOTES RECEIVED PATIENT IN BED RESTING COMFORTABLY. PATIENT IS A/O X 3 , ANXIOUS, AND EASILY AROUSED. NO S/S OF RESPIRATORY DISTRESS, ON RA SATURATING AT 96%. NO COMPLAINS OF PAIN AND ABLE TO COMMUNICATE NEEDS. IV ACCESS NOTED ON R WRIST #22 PATENT , AV FISTULA CHRISTEL .SAFETY MEASURES, BED LOCKED AND IN LOWEST POSITION, SIDE RAILS UP X 2 , CALL LIGHT WITHIN EASY REACH. WILL CONTINUE TO MONITOR.
[2020-03-02] MEDS: SEVELAMER CARBONATE 800 MG TABLET PO SCH ×3 (07:41→17:13)
[2020-03-02] MEDS: FLUPHENAZINE HCL 10 MG TABLET PO SCH ×2 (08:48→17:13)
[2020-03-02] MEDS: ISOSORBIDE DINITRATE (20MG) 20 MG TABLET PO SCH ×2 (08:49→17:12)
[2020-03-02] MEDS: METOPROLOL SUCCINATE 50 MG TAB.SR.24H PO SCH (08:50)
[2020-03-02] MEDS: AMLODIPINE BESYLATE 10 MG TABLET PO SCH (08:50)
[2020-03-02] MEDS: HEPARIN SODIUM, PORCINE 5000 UNITS/1 ML VIAL SQ SCH ×2 (08:53→22:08)
[2020-03-02] MEDS: NICOTINE PATCH (21MG) 21 MG PATCH.TD24 TD SCH (09:10)
[2020-03-02] MEDS: LORAZEPAM 1 MG TABLET PO PRN (11:15)
[2020-03-02 12:00] VITALS: BP 110/64
--- NOTE | 2020-03-02 14:06 | NUR ---
GAVE REPORT TO KERI ,[phone],PER SNF STILL WAITING FOR INSURANCE APPROVAL,LUISA ETIENNE ,DISCHARGE ON HOLD FOR NOW,WILL CONTINUE TO FOLLOW UP.
--- NOTE | 2020-03-02 15:00 | NUR ---
RN NOTES RECEIVED A CALL FROM MOTHER JESÚS [phone]. PER MOTHER, WANTS A CALL BACK FROM CINDER WORKER LUISA TO DISCUSS POSSIBLE EMPLACEMENT IN [place], [place]. CHARGE NURSE AND CINDER WORKER MADE AWARE.
--- NOTE | 2020-03-02 16:01 | NUR ---
follow-up with cm when eta for pickup,per richard still waiting for approval from insurance,will continueto follow up.
--- NOTE | 2020-03-02 18:22 | NUR ---
per cm need rapid covid per dr. martin and if negative will be send back to [facility].awaits covid result and cm instruction w/c snf to send,will endorse to night charge .will continue to followup,nursing sup made aware.
--- NOTE | 2020-03-02 18:24 | NUR ---
COVID RAPID SWAB PERFORMED ORDERED, DROPPED OFF AND SIGNED OFF AT THE LAB .
--- NOTE | 2020-03-02 18:54 | NUR ---
KETAN FROM LAB CALLED, COVID RESULTS NEGATIVE, CHARGE NURSE AND REINFORCED CONCRETE INSPECTOR LUISA MADE AWARE.
--- NOTE | 2020-03-02 19:02 | NUR ---
patient covid rapid test negative dr. martin and cm richard notified ,awaits cm instruction.nursing notified ,endorsed to [facility] night charge nurse.
--- NOTE | 2020-03-02 19:06 | NUR ---
RN CLOSING NOTES WILL ENDORSED PATIENT TO PM NURSE FOR TATIANA. PATIENT IN BED RESTING COMFORTABLY. PATIENT IS A/O X 3 , ANXIOUS, AND EASILY AROUSED. NO S/S OF RESPIRATORY DISTRESS, ON RA SATURATING AT 100%. NO COMPLAINS OF PAIN AND ABLE TO COMMUNICATE NEEDS. IV ACCESS NOTED ON R WRIST #22 PATENT . AV FISTULA CHRISTEL. RAPID COVID TEST NEGATIVE, KO MORAN AND DR NORIEGA NOTIFIED. DISCHARGE ON PROCESS, WAITING ON CABLE WORKER HELPER FOR PLACEMENT. SAFETY MEASURES PLACED, BED LOCKED AND IN LOWEST POSITION, SIDE RAILS UP X 2 , CALL LIGHT WITHIN EASY REACH.
--- NOTE | 2020-03-02 19:30 | NUR ---
RN NOTES RECEIVED PATIENT IN BED RESTING COMFORTABLY. BREATHING NORMAL NO SOB NOTED. RESPIRATION EVEN NON LABORED. SATURATING 98% RA. DENIES ANY PAIN OR DISCOMFORT. IV SITE AND DIALYSIS SITE INTACT NO BLEEDING NO SWELLING NOTED. NO S/S OF ACUTE DISTRESS NOTED. SAFETY MEASURES IN PLACE. CALL LIGHT WITHIN REACH. WILL CONT TO MONITOR FOR TATIANA.
--- NOTE | 2020-03-02 19:48 | NUR ---
MS RN NOTE DR NORIEGA DOES NOT WANT PT TO BE TRANSFER OUT DUE TO RAPID TEST RESULT CAN BE FALSE PER MD. NURSING NEGOTIATIONS DIRECTOR SHANEKA ALSO INFORMED. ALSO QING INFORMED. PER QING IF PT IS NEGATIVE PT CAN BE MOVED TO 2ND OR 3RD FLOOR AND THEY CAN DO ANOTHER TEST FOR COVID 24 HRS APART BEFORE PT IS DISCHARGED TO SNF.
[2020-03-02 20:00] VITALS: BP 139/82
--- NOTE | 2020-03-02 20:01 | NUR ---
MS RN NOTE NURSING WARDROBE SUPERVISOR GAVE ROOM 201 TO TRANSFER THE PT.
--- NOTE | 2020-03-02 20:05 | NUR ---
GAVE REPORT TO NURSE MELISSA FOR TATIANA.
--- NOTE | 2020-03-02 20:10 | NUR ---
PATIENT TRANSFERRED TO MED SURG ROOM 201 VIA WHEEL CHAIR. CALLED PATIENT'S MOTHER JESÚS. INFORMED HER OF PATIENT'S TRANSFER TO 2ND FLOOR ROOM 201.
--- NOTE | 2020-03-02 20:14 | NUR ---
RN NOTES Received patient from SHARAN via wheelchair accompanied by 1 RN. Transferred to MS 201-1. Assisted to bed comfortably. A/O x3, able to communicate in Luxembourgish. Noted ambulatory with steady gait. No peripheral IV line present noted. CHRISTEL AV fistula intact, no bleeding noted. Kept on bed clean, dry and comfortable. Call light within easy reach. Will continue to monitor accordingly.
[2020-03-02 20:27] VITALS: BP 138/79
[2020-03-02 20:30] VITALS: BP 138/79
[2020-03-02] MEDS: ATORVASTATIN 10 MG TABLET PO SCH (22:09)
[2020-03-02] MEDS: TRAZODONE 50 MG TABLET PO SCH (22:09)
--- NOTE | 2020-03-03 06:43 | NUR ---
RN CLOSING NOTES Pt asleep on bed, no s/sx of discomfort noted. On RA, no complaints made within the shift. All nursing needs attended, due meds given as ordered. Call light within easy reach. Endorsed.
--- NOTE | 2020-03-03 07:47 | NUR ---
MS RN OPENING NOTE RECEIVED PATIENT IN BED RESTING COMFORTABLY. PATIENT IN NO ACUTE DISTRESS. NO SOB NOTED. PATIENT BREATHING IS EVEN AND UNLABORED. PATIENT HOB IS ELEVATED. SAFETY PRECAUTIONS IN PLACE. PATIENT BED ALARM IS ON. PATIENT BED IS LOCKED AND IN LOWEST POSITION. CALL LIGHT WITHIN REACH. WILL CONTINUE TO MONITOR.
[2020-03-03 08:00] VITALS: BP 116/70
[2020-03-03] MEDS: SEVELAMER CARBONATE 800 MG TABLET PO SCH ×3 (08:45→17:17)
[2020-03-03] MEDS: NICOTINE PATCH (21MG) 21 MG PATCH.TD24 TD SCH (08:45)
[2020-03-03] MEDS: AMLODIPINE BESYLATE 10 MG TABLET PO SCH (08:45)
[2020-03-03] MEDS: ISOSORBIDE DINITRATE (20MG) 20 MG TABLET PO SCH ×2 (08:46→17:17)
[2020-03-03] MEDS: METOPROLOL SUCCINATE 50 MG TAB.SR.24H PO SCH (08:46)
[2020-03-03] MEDS: FLUPHENAZINE HCL 10 MG TABLET PO SCH ×2 (08:47→17:17)
[2020-03-03] MEDS: HEPARIN SODIUM, PORCINE 5000 UNITS/1 ML VIAL SQ SCH (08:49)
--- NOTE | 2020-03-03 09:30 | NUR ---
MS RN NOTE WHEN SPEAKING TO PATIENT, PATIENT IS EASILY AGITATED AND STATING FOR SMOKE BREAK. PATIENT THREATENING TO LEAVE AMA IF SMOKE BREAK NOT PROVIDED. INFORMED DR. NORIEGA, PER MD SMOKE BREAKS ARE NOT PERMITTED AND WILL NOT ALLOWED. PER DR. NORIEGA HE WANTED A CRISIS EVAL AND PATIENT DISPLAYING POOR JUDGEMENT, OFTEN NEEDING REDIRECTION AND CONSTANT EDUCATION IN PLAN OF CARE. PER DR. NORIEGA ORDER FOR CRISIS EVAL AND TO CALL OUR [facility] FOR EVAL FOR DR. GIPSON. CALLED TO [facility] AND PER GEOVANNY IN PSYCH PATIENT IS NOT CANDIDATE FOR CRISIS EVAL DUE TO INSURANCE PURPOSES. PER GEOVANNY PSYCH EVAL BY DR. MARTÍNEZ IS INITIATED FOR CONSULT. FAXED FACE SHEET FOR CONSULT TO [facility], [employer]IA [employer] OPERATOR CONFIRMED FOR EVAL FROM [facility]. PATIENT ALSO ATTEMPTED TO SMOKE IN ROOM WHEN TELLING HER SHE CAN NOT HAVE SMOKE BREAKS PER DR. NORIEGA. CONFISCATED MATCHES AND CIGARETTE. VLADIMIR BANSAL AND STEVEN RN INVESTIGATED PATIENT BELONGINGS. NO OTHER MATCHES OR CIGS NOTED IN BELONGINGS. NOTIFIED DR. NORIEGA AND NO ADDITIONAL MD ORDERS GIVEN. PATIENT UNDER CONSTANT MONITORING, PATIENT ROOM BY NURSING STATION FOR OBSERVATION. CHARGE NURSE ROMNA ETIENNE.
--- NOTE | 2020-03-03 11:05 | NUR ---
MS RN NOTE PATIENT COMPLETED HEMODIALYSIS, WITH 2L OUT PER [facility] MASTER RIGGER.
--- NOTE | 2020-03-03 11:58 | NUR ---
Social service consult requested by . Per MD notes, pt is a 39-year-old female with a history of end-stage kidney disease, hypertension, tobacco use disorder, mental illness and seizure disorder, COVID positive at her facility, presented for SNF placement. Facility could not place her because they did not have yet a COVID dialysis unit available, so she is parked on observation. She did complain of some shortness of breath at rest. SUPERVISOR CONCR[employer]E [employer]ANT conducted chart review and met with the pt bedside. SUPERVISOR CONCR[employer]E [employer]ANT introduced self, explained the role of the SW and purpose of the visit. Initially pt was guarded, but got more comfortable as the assessment continued. Pt is alert and oriented x 4. Pt is slow to respond when asked questions. Pt was sitting upright on her bed at time of the visit. Pt reports, she resides at [facility]. Pt's emergency contact is her mother Allie. Pt is ambulatory with her ADLs. Meal preparation is provided to the pt at her SNF. Pt reports to have a psychiatric diagnosis of Schizophrenia. Pt currently denies suicidal and homicidal ideations and visual/auditory hallucinations at this time. Pt is a smoker and has been for the pst 20 years. Pt reports, she smokes 30 cigarettes per day. .Pt denies substance use and /or abuse. No other social service needs are requested at this time. Pt reported, she was agitated earlier due to not being allowed to smoke. SUPERVISOR CONCR[employer]E [employer]ANT provided pt with active listening, emotional support, supportive counseling, positive coping skills and validation of feelings. Muck Operator is available for support as needed.
[2020-03-03] MEDS: LORAZEPAM 1 MG TABLET PO PRN (13:09)
--- NOTE | 2020-03-03 13:13 | NUR ---
MS RN NOTE PATIENT GETTING RESTLESS AND ANXIOUS. ATIVAN PRN GIVEN ORDERED.
--- NOTE | 2020-03-03 14:00 | NUR ---
MS RN NOTE PATIENT WITHOUT IV ACCESS. DR. NORIEGA MADE AWARE AND PER MD PATIENT DOES NOT NEED IV ACCESS.
--- NOTE | 2020-03-03 17:30 | NUR ---
MS RN NOTE PATIENT REFUSED SKIN ASSESSMENT, EDUCATED RISKS VS BENEFITS. PATIENT CONTINUED TO REFUSE SKIN ASSESSMENT.
--- NOTE | 2020-03-03 18:00 | NUR ---
MS RN NOTE PER DR. NORIEGA PATIENT DOES NOT NEED TO BE SEEN BY PSYCHIATRIST. PER MD ONLY WANTED PSYCH CONSULT BECAUSE PATIENT WANTED TO LEAVE AMA INITIALLY IN THE MORNING.
[2020-03-03 18:38] VITALS: BP 119/79
--- NOTE | 2020-03-03 18:57 | NUR ---
MS RN CLOSING NOTE PATIENT IN BED RESTING COMFORTABLY. PATIENT IN NO ACUTE DISTRESS. NO SOB NOTED. PATIENT BREATHING IS EVEN AND UNLABORED. PATIENT MEDICALLY CLEARED FOR DISCHARGE. DC INSTRUCTIONS PROVIDED TO PATIENT. PATIENT VERBALIZED UNDERSTANDING. PATIENT REFUSED SKIN ASSESSMENT, EDUCATED RISKS VS BENEFITS. PATIENT CONTINUED TO REFUSE SKIN ASSESSMENT. PATIENT BELONGINGS LIST SIGNED AND HAS BELONGINGS AT THE BEDSIDE WITH HER. PATIENT HAD NO IV ACCESS. WILL ENDORSE TO PM SHIFT FOR REMOVAL OF ID BAND. PATIENT KEPT CLEAN, DRY, AND COMFORTABLE THROUGHOUT SHIFT. NEEDS AND CONCERNS ADDRESSED. REPORT GIVEN TO SHARON WHEELER AT [facility]. PICKUP TIME PER [employer] [facility] IS 1930. PATIENT BED IS LOCKED AND IN LOWEST POSITION. CALL LIGHT WITHIN REACH. WILL ENDORSE CARE TO PM SHIFT FOR TATIANA.
--- NOTE | 2020-03-03 19:30 | NUR ---
ms rn opening note received patient walking around in room. a/ox3. tolerating room air. respirations are even and unlabored. no s/s sob noted. no c/o pain at this time. in no apparent distress. no iv access noted. CHRISTEL AV shunt wrapped d/t dialysis today. bed is low and locked, hob elevated in semi fowlers, side rails up x2. call light within reach. will continue to monitor.
--- NOTE | 2020-03-03 19:50 | NUR ---
ms handle turner note patient being discharge to [facility]. patient ambulated to [facility]. vital signs stable. 119/80 hr 65, rr 20, temp 98.2. o2 sat 100%. a/ox3. tolerating room air. no resp distress. no c/o pain. all forms signed and explained. no pictures taken, skin intact, no iv site, id band removed, belongings given to patient.
== END 2020-03-03 19:50 | DRG 137 ==
LOC: ER 14:54 → MEDSG1 03-01 08:27 → MEDSG2 03-02 20:10 → UNDODISIN 03-02 20:51
PROVIDERS: ADMIT Internal Medicine; ATTEND Internal Medicine
PROC: 5A1D70Z Performance of Urinary Filtration, Intermittent, Less than 6 Hours Per Day (ICD-10-PCS; principal; 2020-03-01)
PROC: 5A1D70Z Performance of Urinary Filtration, Intermittent, Less than 6 Hours Per Day (ICD-10-PCS; 2020-03-03)
DX: U07.1 COVID-19 (principal); N18.6 End stage renal disease; J44.9 Chronic obstructive pulmonary disease, unspecified; I25.10 Atherosclerotic heart disease of native coronary artery without angina pectoris; I12.0 Hypertensive chronic kidney disease with stage 5 chronic kidney disease or end stage renal disease; Z99.2 Dependence on renal dialysis; F17.210 Nicotine dependence, cigarettes, uncomplicated; F20.0 Paranoid schizophrenia; G40.909 Epilepsy, unspecified, not intractable, without status epilepticus; D64.9 Anemia, unspecified; Q78.9 Osteochondrodysplasia, unspecified; F39 Unspecified mood [affective] disorder
CPT/HCPCS: 36415; 80053-TC; 80061-TC; 82550-TC; 83735-TC; 83970; 84100-TC; 84702-TC; 85025-TC; 86706; 87081-TC; 87340; 90935-TC; G0378; J1644